=== PATIENT | female | born 1945 | race Caucasian/White ===

== ENCOUNTER 2020-05-23 09:10 | Outpatient (CLI) | payer OTHER | END 2020-05-23 09:37 | disposition home or self-care (01) | LOC: TOM 09:10 | PROVIDERS: ATTEND Internal Medicine Gastroenterology | DX: Z12.11 Encounter for screening for malignant neoplasm of colon (principal); K44.9 Diaphragmatic hernia without obstruction or gangrene; Q61.01 Congenital single renal cyst; K42.9 Umbilical hernia without obstruction or gangrene ==